=== PATIENT | male | born 1955 | race Caucasian/White ===

== ENCOUNTER 2024-07-23 07:01 | Day surgery (SDC) | payer MEDICARE, SELFPAY ==
[2024-07-21 10:53] VITALS: BMI 26.5
[2024-07-23] MEDS: LACTATED RINGERS 1000ML 1,000 ML 50 ML IV (08:06)
[2024-07-23 08:10] VITALS: BP 139/81; PULSE 69; RESP 18; TEMP 36.3; O2SAT 96
--- NOTE | 2024-07-23 08:28 | EXP.ANES.CKL ---
[facility] Disclaimer: The information contained in this section may have been updated after the patient was seen, as this information can be updated by other users. Medical History Cholecystectomy planned HLD (hyperlipidemia) Hypertension Hypothyroid Surgical History H/O shoulder surgery Family History Other Hyperlipidemia Social History Smoking Status: Never smoker alcohol intake: never substance use type: denies use current occupational status: other Travel in the last 8 weeks: None [facility] Anesthesia Checklist Patient Identification Patient Identification: Arm Band Structural Data Admitted From: Home Planned Operative Procedure/s: Colonoscopy Consent for Planned Operative Procedure(s) Verified: Yes Verified Documents: Surgical Consent and History and Physical NPO Status Verified Time NPO: 02:00 (finished prep) Additional verifications Anesthesia Reactions: No Airway Assessment Mallampati Score:: Class II C-Spine Mobility Assessed: Yes TMJ Mobility Assessed: Yes Dentition: Good Dentition Neurological Assessment Level of Consciousness: Awake, Alert and Appropriate Anesthesia Plan Anesthesia Risk discussed: Yes Anesthesia Plan: Verified ASA Class: II Anesthesia Type: MAC
--- NOTE | 2024-07-23 09:18 | P.HP_ITS ---
History of Present Illness *Admission Date: 07/23/24 *Reason for visit:: Personal history of adenomatous colon polyps *History of present illness: Mr. Mulligan is a 68-year-old gentleman who is here for surveillance colonoscopy secondary to a personal history of adenomatous colon polyps. The examination is deemed medically necessary for surveillance colonoscopy. The patient has been seen, interviewed and examined prior to the procedure by both myself and the anesthesia provider. [facility] Disclaimer: The information contained in this section may have been updated after the patient was seen, as this information can be updated by other users. Medical History (Updated 07/23/24 @ 09:19 by Devaughn Melo II, MD) Cholecystectomy planned HLD (hyperlipidemia) Hypertension Hypothyroid Surgical History H/O shoulder surgery Family History Other Hyperlipidemia Social History (Updated 07/23/24 @ 08:29 by Erlin Downing CRNA) Smoking Status: Never smoker alcohol intake: never substance use type: denies use current occupational status: other Travel in the last 8 weeks: None Have you lived/traveled outside [place] in past 30 days?: No Contact w/someone who lives/traveled outside US past 30 days?: No Exposure to someone with infectious disease in past 14 days?: No Do you have a fever (greater than 100.4 F or 38 C)?: No Have you tested positive for COVID-19: No Exposed to someone with COVID-19 in past 14 days?: No Do you have a sore throat?: No Do you have a cough?: No Do you have any weakness?: No Do you have any diarrhea?: No Are you experiencing any unusual bleeding?: No Do you have any muscle aches/pain?: No Do you have any abdominal pain?: No Are you experiencing loss of taste or smell?: No Review of Systems Review of Systems Review of systems (narrative): Negative *Cardiovascular Comments: Negative *Gastrointestinal Comments: Negative *Genitourinary Comments: Negative *Musculoskeletal Comments: Negative *Neurologic Comments: Negative Meds Home Medications and Allergies Home Medications ?Medication ?Instructions ?Recorded ?Confirmed ?Type atorvastatin 80 mg tablet 80 mg PO DAILY 07/21/24 07/21/24 History levothyroxine 112 mcg tablet 112 mcg PO DAILY 07/21/24 07/21/24 History (Synthroid) losartan 100 mg tablet 100 mg PO DAILY 07/21/24 07/21/24 History New Prescriptions to Start Prescriptions: Allergies Allergy/AdvReac Type Severity Reaction Status Date / Time ciprofloxacin Allergy Severe Anaphylaxis Verified 07/23/24 08:09 Exam Data for Last 24 hours Vital signs and Labs for Last 24 Hours: Temp Pulse Resp BP Pulse Ox O2 Del Method 97.4 F L 69 18 139/81 96 Room Air 07/23/24 08:10 07/23/24 08:10 07/23/24 08:10 07/23/24 08:10 07/23/24 08:10 07/23/24 08:10 I & O for Last 24 hours: Intake & Output 07/20/24 07/21/24 07/22/24 07/23/24 23:59 23:59 23:59 23:59 Weight 201 lb *Routine HEENT Exam Head: Present normocephalic Eye: Present EOMI and PERRL ENT: Present mucous membranes moist *Routine Neck Exam Neck: Present supple *Routine Respiratory Exam Respiratory: Present CTA bilaterally *Routine Cardiovascular Exam Cardiovascular: Present RRR *Routine Abdominal Exam Abdominal: Present soft and normoactive bowel sounds; Absent tenderness *Routine Rectal Exam Rectal:: deferred *Routine Genitalia Exam Genitalia:: deferred *Routine Extremities Exam Extremities: Absent cyanosis, clubbing or edema *Routine Skin Exam Skin: Present warm; Absent rash *Routine Neurological Exam Neurological: Present alert and oriented X3 Assessment and Plan *Assessment and plan (1) Personal history of adenomatous and serrated colon polyps: Status: Acute Category: Medical Code(s): Z86.0101 - Personal history of adenomatous and serrated colon polyps Plan A/P: 1. Personal history of adenomatous colon polyps is the preprocedural diagnosis. The patient will be anesthetized/sedated using MAC sedation. The patient has been seen and examined. Cardiac and lung assessment prior to the examination is stable. Proceed with planned surveillance colonoscopy
[2024-07-23 09:23] VITALS: O2SAT 99
--- NOTE | 2024-07-23 09:58 | HMH.PROCNOTE ---
[facility] Procedure Note Date: 07/23/24 Time: 10:01 Procedure Note:: Colonoscopy Procedure Report: Colonoscopy with cold snare polypectomy Endoscopist: Devaughn Melo II, MD Referring physician: Vidal Landrum MD, [facility], [place] [address] Date of Procedure: July 23, 2024 Equipment: Olympus 190 variable stiffness pediatric colonoscope Sedation: MAC sedation Indication: Mr. Mulligan is a 68-year-old gentleman who is here for follow-up surveillance colonoscopy secondary to a personal history of adenomatous colon polyps. He did have a colonoscopy in June 2021 and had 5 or 6 polyps 1 of which was a larger advanced adenoma. I did recommend 3-year surveillance interval. The patient has begun using Konsyl psyllium fiber daily. He reports no abdominal pain, weight loss, change in his bowel habits or rectal bleeding. He reports no family history of colon cancer. Procedure: Prior to the procedure, a history and physical exam was performed, and patient's medications and allergies were reviewed. The risks, benefits and alternatives of the sedation and procedure were discussed with the patient. All questions were answered and informed consent was obtained. The patient was brought to the procedure room. Patient identification and proposed procedure were verified by the physician and the nurse. The patient was placed in a left lateral decubitus position and the scope was passed under direct vision. Throughout the procedure, the patient's blood pressure, pulse, and oxygen saturations were monitored continuously. The colonoscopy was accomplished without difficulty. The patient tolerated the procedure well. Findings: On digital rectal examination there was normal rectal tone. There were no external hemorrhoids. The colonoscope was introduced through the anal canal to the rectum and advanced to the cecum. The ileocecal valve and appendiceal orifice were identified. The scope was advanced a short distance into the ileum which appeared grossly normal. The scope was then withdrawn into the colon. There were 2 polyps (ascending x 1 at hepatic flexure (8 mm) and descending x 1 (4 mm)). These were both removed via cold snare polypectomy. The cecum, ascending and transverse colon and mucosa were grossly normal. There were extensively scattered diverticuli throughout the descending and sigmoid colon (LEFT colon). The rectum itself was normal. Upon retroflexion within the rectum there were grade 2 internal hemorrhoids. The preparation was excellent throughout with [place] Preparation Score of 9. The cecal time was 14 minutes. Impression: 1. Colonic polyps x 2 (4 and 8 mm) 2. Extensive left-sided diverticulosis 3. Grade 2 internal hemorrhoids Plan: I will follow-up the polyp histology and recommend repeat surveillance colonoscopy again in 5 years. I would continue psyllium Konsyl fiber supplementation on a maintenance basis.
[2024-07-23 10:00] VITALS: BP 100/59; PULSE 69; RESP 14; TEMP 36.1; O2SAT 95
[2024-07-23 10:10] VITALS: BP 103/63; PULSE 63; RESP 16; O2SAT 94
[2024-07-23 10:20] VITALS: BP 101/69; PULSE 67; RESP 16; O2SAT 94
[2024-07-23 10:30] VITALS: BP 112/64; PULSE 62; RESP 18; O2SAT 94
== END 2024-07-23 10:36 | disposition home or self-care (01) ==
PROVIDERS: PCP Family Medicine; Visit Provider Internal Medicine Gastroenterology
PROC: 0DJD8ZZ Inspection of Lower Intestinal Tract, Via Natural or Artificial Opening Endoscopic (ICD-10-PCS; CPT 45378; principal; 2024-07-23 08:30)
DX: K63.5 Polyp of colon (principal); K57.30 Diverticulosis of large intestine without perforation or abscess without bleeding; K64.1 Second degree hemorrhoids; Z86.0101 Personal history of adenomatous and serrated colon polyps
CPT/HCPCS: 45385; J2405; J7120